=== PATIENT | male | born 1940 | race Caucasian/White ===

== ENCOUNTER 2017-05-30 09:39 | Emergency (ER) | payer MEDICARE, MEDICAID ==
[~2017-05-30] VITALS: Ht 170.2 cm; Wt 63.5 kg
[2017-05-30 09:39] VITALS: BP_SYST 141
[2017-05-30] MEDS ORDERED: NACL 0.9% 1,000 ML IV ONE (10:00)
[2017-05-30] MEDS ORDERED: ASPI-1077 PO (10:01)
[2017-05-30] MEDS ORDERED: AMAN100T PO (10:01)
[2017-05-30] MEDS ORDERED: LISI-209 PO ×2 (10:01→11:12)
[2017-05-30] MEDS ORDERED: LIP40 PO ×2 (10:01→11:12)
[2017-05-30] MEDS ORDERED: WARF2.5T2 PO ×2 (10:01→11:12)
[2017-05-30] MEDS ORDERED: QUET25TA34 PO (10:01)
[2017-05-30 10:18] LABS: BASOPHILS % (AUTO) 0.6 % (0.0-2.0); EOSINOPHILS # (AUTO) 0.2 K/uL (0.0-0.4); EOSINOPHILS % (AUTO) 3.7 % (0.0-4.0); HEMATOCRIT 48.4 % (36-54); HEMOGLOBIN 15.4 g/dL (14.0-18.0); LYMPHOCYTES # (AUTO) 1.3 K/uL (1.0-5.5); LYMPHOCYTES % (AUTO) 25.1 % (20.5-51.5); MEAN CORPUSCULAR HEMOGLOBIN 29 pg (27-31); MEAN CORPUSCULAR HGB CONC 32 % (32-36); MEAN CORPUSCULAR VOLUME 91 fL (79.0-98.0); MONOCYTES # (AUTO) 0.3 K/uL (0.0-1.0); MONOCYTES % (AUTO) 6.2 % (1.7-9.3); NEUTROPHILS # (AUTO) 3.5 K/uL (1.8-7.7); NEUTROPHILS % (AUTO) 64.4 % (40.0-70.0); PLATELET COUNT (AUTO) 230 K/uL (130-430); RED BLOOD CELL COUNT(AUTO) 5.31 MIL/uL (4.2-6.2); WHITE BLOOD COUNT (AUTO) 5.3 K/uL (4.8-10.8)
[2017-05-30] MEDS ORDERED: MEMA10TA12 PO ×2 (10:33→11:12)
[2017-05-30 10:40] LABS: ANION GAP 13 (5-15); CALCIUM 9.4 mg/dL (8.4-11.0); CHLORIDE 106 mmol/L (98-107); GLUCOSE 157 mg/dL (70-99); POTASSIUM 4.3 mmol/L (3.5-5.1); SODIUM SERUM 142 mmol/L (136-145); UREA NITROGEN, BLOOD 14 mg/dL (8-21)
[2017-05-30 10:41] LABS: CREATININE 1.38 mg/dL (0.55-1.30)
[2017-05-30 10:45] LABS: ALANINE AMINOTRANSFERASE 23 U/L (12-78); ASPARTATE AMINOTRANSFERASE 22 U/L (10-37); TOTAL BILIRUBIN 0.5 mg/dL (0.0-1.0)
[2017-05-30 10:46] LABS: INR 1.9 (0.80-1.20)
[2017-05-30 10:50] LABS: ALCOHOL, BLOOD < 3 mg/dL (<10)
[2017-05-30 11:03] LABS: ACETAMINOPHEN < 1 ug/mL (1-30)
[2017-05-30 11:12] LABS: BARBITURATE, URINE NEGATIVE (NEG <=200); BENZODIAZEPINE, URINE NEGATIVE (NEG <=150); CANNABINOID, URINE NEGATIVE (NEG <=50); COCAINE, URINE NEGATIVE (NEG <=150); METHAMPHETAMINES SCREEN,URINE NEGATIVE (NEG <=500); OPIATE, URINE NEGATIVE (NEG <=100); PHENCYCLIDINE SCREEN,URINE NEGATIVE (NEG <=25); UR TRICYCLIC ANTIDEPRESSANTS NEGATIVE (NEG <=300); URINE AMPHETAMINE NEGATIVE (NEG <=500); URINE METHADONE NEGATIVE (NEG <=200); URINE OXYCODONE SCREEN NEGATIVE (NEG <=100); URINE PROPOXYPHENE SCREEN NEGATIVE (NEG <=300)
[2017-05-30] MEDS ORDERED: SER25 PO (11:12)
[2017-05-30] MEDS ORDERED: DIPHENHYDRAMINE INJ 50 MG/ML VIAL IVP ONE (11:30)
[2017-05-30 14:14] VITALS: BP_SYST 160
== END 2017-05-30 14:14 | disposition short-term general hospital (02) ==
LOC: SED 09:39
DX: R56.9 Unspecified convulsions (principal); R47.01 Aphasia; E78.5 Hyperlipidemia, unspecified; M81.0 Age-related osteoporosis without current pathological fracture; Z95.1 Presence of aortocoronary bypass graft; Z79.899 Other long term (current) drug therapy
CPT/HCPCS: 36415; 70450; 80053; 80307; 85025; 85610; 85730; 93005; 96361; 96374; 99285; G0480; G0481; G0482; J1200; J7030